=== PATIENT | female | born 1955 | race Caucasian/White ===

== ENCOUNTER 2021-07-12 06:37 | Day surgery (SDC) | payer OTHER ==
[2021-07-11 10:14] LABS: COVID AG,FIA SOURCE NASOPHARYNGEAL
[~2021-07-12] VITALS: Ht 157.5 cm; Wt 79.5 kg
[~2021-07-12 06:37] MED LIST: ALBU6.7H9 IH; DICL20GE TP; FAMO20 PO; FLUT16H NASAL; GABA-1181 PO; MONT10TA32 PO; SODIUM CHLORIDE 0.9% 1,000 ML IV ONE; SODIUM CHLORIDE 0.9% 1,000 ML ONE; SOLI10TA7 PO
[2021-07-12] MEDS ORDERED: MIDAZOLAM HCL 5 MG/ML VIAL ONE (06:43)
[2021-07-12] MEDS ORDERED: FentaNYL CITRATE PF 100 MCG/2 ML VIAL ONE (06:43)
[2021-07-12] MEDS ORDERED: MethylPREDNISolone SOD SUCC 125 MG/2 ML VIAL IVP ONE (08:30)
[2021-07-12] MEDS ORDERED: MethylPREDNISolone SOD SUCC 125 MG/2 ML VIAL ONE (08:54)
[2021-07-12] MEDS ORDERED: LIDOCAINE 2% 30 ML JELLY ONE (17:17)
[2021-07-12] MEDS ORDERED: BENZOCAINE 20% 50 MCG/SPRAY 57 GM ONE (17:17)
[2021-07-12] MEDS ORDERED: ALBUTEROL SULFATE 2.5 MG/0.5 ML NEB SOLUTION NEB ONE (17:17)
[2021-07-12] MEDS ORDERED: LIDOCAINE 4% 50 ML SOLUTION ONE (17:17)
[2021-07-12] MEDS ORDERED: OXYGEN THERAPY IH SCH (20:00)
== END 2021-07-12 10:00 | disposition home or self-care (01) ==
LOC: SURGERY 06:37
PROVIDERS: ATTEND Internal Medicine Critical Care Medicine
DX: J38.4 Edema of larynx (principal); B37.0 Candidal stomatitis; M19.90 Unspecified osteoarthritis, unspecified site; K21.9 Gastro-esophageal reflux disease without esophagitis; J45.909 Unspecified asthma, uncomplicated; Z79.899 Other long term (current) drug therapy; Z98.890 Other specified postprocedural states
CPT/HCPCS: 31623; 31624; 71045; 87015; 87070; 87077; 87101; 87186; 87205; 87206; 87220; 87426; 88108; 88184; 88185; 88312; C9803; J2250; J2930; J3010; J7030; J7613; Z7610